=== PATIENT | female | born 1945 | race Caucasian/White ===

== ENCOUNTER 2017-11-27 09:26 | Outpatient (CLI) | payer MEDICARE ==
[2017-11-27] VITALS (18 sets, daily range): BP systolic 87–135; BP diastolic 60–91
== END 2017-11-27 23:59 | disposition home or self-care (01) ==
LOC: CARD DIAG 09:26
PROVIDERS: ATTEND Internal Medicine Interventional Cardiology
DX: R55 Syncope and collapse (principal); R42 Dizziness and giddiness; Z87.891 Personal history of nicotine dependence
CPT/HCPCS: 93660